=== PATIENT | female | born 1990 | race African-American/Black ===

== ENCOUNTER → 2017-07-12 | Emergency (ER) | payer OTHER ==
[~2017-07-12] VITALS: Ht 180.3 cm; Wt 124.7 kg
[~2017-07-12] MED LIST: LEVSIN/SL0.125 MG SL; MOTRIN800 MG PO; OMEPRAZOLE40 MG PO; PROTONIX20 MG; SALINE NASAL SP45 ML NS; VISTARIL50 MG; ZANTAC300 MG PO; ZITHROMAX TRI-500 MG PO
== END | disposition home or self-care (01) ==
LOC: ER 22:02
DX: R00.2 Palpitations (principal); F41.8 Other specified anxiety disorders

== ENCOUNTER → 2019-02-02 | Outpatient (CLI) | payer OTHER | END | disposition home or self-care (01) | LOC: PRENATAL 09:17 | DX: O99.212 Obesity complicating pregnancy, second trimester (principal); O99.012 Anemia complicating pregnancy, second trimester; O35.3XX1 Maternal care for (suspected) damage to fetus from viral disease in mother, fetus 1 ==

== ENCOUNTER 2019-03-20 19:10 | Emergency (ER) | payer OTHER ==
[~2019-03-20] VITALS: Ht 162.6 cm; Wt 123.8 kg
[2019-03-20] MEDS ORDERED: PRENATABS RX T1 EACH (19:24)
== END 2019-03-20 21:37 | disposition home or self-care (01) ==
LOC: ER 19:10
DX: G89.11 Acute pain due to trauma (principal); M25.512 Pain in left shoulder

== ENCOUNTER → 2019-04-15 | Outpatient (CLI) | payer OTHER ==
[~2019-04-15] MED LIST changes: +PRENATABS RX T1 EACH
== END | disposition home or self-care (01) ==
LOC: PRENATAL 04-08 08:30
DX: O26.849 Uterine size-date discrepancy, unspecified trimester (principal); O99.210 Obesity complicating pregnancy, unspecified trimester; Z3A.30 30 weeks gestation of pregnancy; O99.019 Anemia complicating pregnancy, unspecified trimester; O99.343 Other mental disorders complicating pregnancy, third trimester

== ENCOUNTER 2019-05-18 15:15 | Inpatient (IN) | payer OTHER ==
[~2019-05-18] VITALS: Ht 162.6 cm; Wt 125.2 kg
[2019-06-18] MEDS ORDERED: IRON325 MG PO (05:56)
[2019-06-18] MEDS ORDERED: ASPIR 8181 MG PO (05:56)
[2019-06-20] MEDS ORDERED: IRON325 MG PO (14:18)
[2019-06-20] MEDS ORDERED: ACETAMINOPHEN325 M1 PO (14:18)
== END 2019-06-20 14:49 | disposition home or self-care (01) | DRG 807 ==
LOC: OB/GYN 06-18 05:12 → LDR 06-18 05:12 → OB/GYN 06-18 14:05
PROVIDERS: ADMIT Specialist
PROC: 10E0XZZ Delivery of Products of Conception, External Approach (ICD-10-PCS; principal; 2019-06-18)
PROC: 4A1HXFZ Monitoring of Products of Conception, Cardiac Rhythm, External Approach (ICD-10-PCS; 2019-06-18)
PROC: 3E033VJ Introduction of Other Hormone into Peripheral Vein, Percutaneous Approach (ICD-10-PCS; 2019-06-18)
DX: O13.4 Gestational [pregnancy-induced] hypertension without significant proteinuria, complicating childbirth (principal); Z37.0 Single live birth; O99.214 Obesity complicating childbirth; O69.81X0 Labor and delivery complicated by cord around neck, without compression, not applicable or unspecified; O70.0 First degree perineal laceration during delivery; Z3A.39 39 weeks gestation of pregnancy

== ENCOUNTER → 2019-05-18 | Outpatient (CLI) | payer OTHER | END | disposition home or self-care (01) | LOC: PRENATAL 05-14 13:00 | DX: O26.843 Uterine size-date discrepancy, third trimester (principal); O99.213 Obesity complicating pregnancy, third trimester; O99.013 Anemia complicating pregnancy, third trimester; O99.343 Other mental disorders complicating pregnancy, third trimester; O99.89 Other specified diseases and conditions complicating pregnancy, childbirth and the puerperium; O36.8130 Decreased fetal movements, third trimester, not applicable or unspecified ==

== ENCOUNTER 2021-01-23 15:46 | Inpatient (IN) | payer OTHER ==
[~2021-01-23] VITALS: Ht 162.6 cm; Wt 164.2 kg
[~2021-01-23 15:46] MED LIST changes: +ACETAMINOPHEN325 M1 PO; +ASPIR 8181 MG PO; +IRON325 MG PO
--- NOTE | 2021-01-23 16:11 | NUR ---
PACIENTE FEMENIAN, ALERTA Y ORIENTADA. REFIERE ESTAR EMBARAZADAS CON SEMANAS DESCONOCIDAS. REFIERE VERGARA ULTIMA MENSTRUACION FUE HACE 2 MESES. PACIENTE REFIERE DOLOR ABDOMINAL, ESPALDA BAJA Y PIERNAS EN OCASIONES INTERMITENTE. SE MIDE S/V. SE UBICA EN MANSOOR DE OBSERVACION.
--- NOTE | 2021-01-23 17:01 | NUR ---
SE REALIZAN ORDENES MEDICAS EN VERGARA TOTALIDAD. SE ORIENTA A PACIENTE SOBRE LAS MISMAS.
--- NOTE | 2021-01-23 19:17 | NUR ---
PEROSNAL DE SONOGRAFIA MARYORIE LE NOTIFICA A QUE AL MOMENTO DE ESTAR REALIZANDO EL SONOGRAMA,ESTA LA OBSERVA EN PROCESO DE PARTO,Y LE ES NOTIFICADO A SOBRE PTE,LEONCIO ORDENA SE TRASLADE A MANSOOR DE PARTOS,LO CUAL REALIZA RN GUERRA JUNTO A OFICIAL DE TRANSPORTE.DE MANERA INMEDIATA. PTE ALERTA Y ORIENTADA.
== END 2021-01-25 15:19 | disposition home or self-care (01) | DRG 807 ==
LOC: ER 15:46 → LDR 20:40 → OB/GYN 01-24 15:02 → LDR 01-24 15:06 → OB/GYN 01-24 16:41
PROVIDERS: ADMIT Specialist; ATTEND Specialist
PROC: 10E0XZZ Delivery of Products of Conception, External Approach (ICD-10-PCS; principal; 2021-01-23)
PROC: 0HQ9XZZ Repair Perineum Skin, External Approach (ICD-10-PCS; 2021-01-23)
PROC: 10907ZC Drainage of Amniotic Fluid, Therapeutic from Products of Conception, Via Natural or Artificial Opening (ICD-10-PCS; 2021-01-23)
PROC: 4A1HXFZ Monitoring of Products of Conception, Cardiac Rhythm, External Approach (ICD-10-PCS; 2021-01-23)
DX: O99.824 Streptococcus B carrier state complicating childbirth (principal); Z37.0 Single live birth; O70.0 First degree perineal laceration during delivery; Z3A.38 38 weeks gestation of pregnancy

== ENCOUNTER 2021-08-02 17:50 | Emergency (ER) | payer OTHER ==
[~2021-08-02] VITALS: Ht 162.6 cm; Wt 116.1 kg
== END 2021-08-02 20:31 | disposition home or self-care (01) ==
LOC: ER 17:50
DX: K21.9 Gastro-esophageal reflux disease without esophagitis (principal)

== ENCOUNTER 2024-08-10 02:51 | Inpatient (IN) | payer OTHER ==
[~2024-08-10] VITALS: Ht 162.6 cm; Wt 124.7 kg
--- NOTE | 2024-08-10 03:10 | NUR ---
paciente refiere hace 1 hora se le puso la josé manuel dura y comenzo con gases y eso la puso ansiosa cual comenzo a hiperventilacion. al momento del triage abdomen depresible al tacto y sin dolor y paciente hablando en oraciones completas
[2024-08-10] MEDS ORDERED: hydrOXYzine PAMOATE 50 MG CAPSULE PO ONE ×2 (03:26→03:30)
--- NOTE | 2024-08-10 03:29 | NUR ---
AL MOMENTO DEL TRIAGE PACIENTE TAMBIEN REFIERE QUE TIENE PALPITACIONES SE REALIZA EKG Y SE PRESENTA A DR. HARRINGTON. SE COLOCA EN K-7 CON MONITOR CARDIACO
[2024-08-10] MEDS ORDERED: LEVALBUTEROL HCL 0.63 MG/3 ML SOLUTION IH ONE (03:44)
[2024-08-10] MEDS ORDERED: METHYLPREDNISOLONE SOD SUCC 125 MG VIAL IV STA (03:50)
[2024-08-10] MEDS ORDERED: METHYLPREDNISOLONE SOD SUCC 125 MG VIAL ONE (03:52)
[2024-08-10] MEDS ORDERED: LEVALBUTEROL HCL 0.63 MG/3 ML SOLUTION IH SCH (04:00)
--- NOTE | 2024-08-10 04:13 | NUR ---
SE ORIENTY A PTE SOBRE TX MEDICO Y LA MISMA REFIERE ENTENDER. SE CANALIZA A PTE EN AMBOS BRAZOS CON ANGIO #20. SE RECOLECTAN MUESTRAS DE LAB Y SE ADMISNITRAN MEDICAMENTOS LEONORA ORDEN MEDICAS.
[2024-08-10 04:51] LABS: INR 1.02; PROTHROMBIN TIME 11.1 SECONDS (9.0-11.5)
[2024-08-10 04:57] LABS: BASO % 0.5 % (0.1-1.2); EOS # 0.21 (0.04-0.54); EOS % 1.6 % (0.7-7.0); LYMPH # 2.99 (1.18-3.74); LYMPH % 22.8 % (19.3-53.1); MEAN CORPUSCULAR HEMOGLOBIN 18.9 pg (25.6-32.2); MONO # 1.05 (0.24-0.82); NEUT # 8.73 (1.56-6.13); NEUT % 66.3 % (34.0-71.1); RED BLOOD COUNT 3.71 M/uL (3.93-5.22); RED CELL DISTRIBUTION WIDTH 18.9 % (11.6-14.4)
[2024-08-10 05:00] LABS: ALBUMIN 3.1 gm/dL (3.4-5.0); BILIRUBIN TOTAL 0.19 mg/dL (0.3-1.2); CALCIUM 8.3 mg/dL (8.5-10.1); GFR 12.98; GLOBULINA 5.2 G/DL (2.4-3.5); PLATELET COUNT 663 K/uL (163-369); POTASSIUM 3.95 mEq/L (3.5-5.1); TOTAL PROTEIN 8.3 gm/dL (6.4-8.2)
[2024-08-10 05:01] LABS: HEMATOCRIT 23.4 % (34.1-44.9)
[2024-08-10 05:04] LABS: CREATININE SERUM 4.02 mg/dL (0.55-1.02)
[2024-08-10 05:06] LABS: COVID-19 AG NEGATIVE (NEGATIVE)
[2024-08-10] MEDS ORDERED: NIFEDIPINE 10 MG CAPSULE PO STA (05:13)
[2024-08-10] MEDS ORDERED: NIFEDIPINE 10 MG CAPSULE PO ONE (05:19)
[2024-08-10 05:26] LABS: INFLUENZA A AG NEGATIVE (NEGATIVE)
[2024-08-10] MEDS ORDERED: FUROsemide 20 MG/2 ML VIAL ONE ×2 (06:04→19:03)
[2024-08-10] MEDS ORDERED: FUROsemide 20 MG/2 ML VIAL IV STA (06:06)
[2024-08-10 06:20] LABS: ABG pCO2 31.5 mmHg (35-45)
[2024-08-10 06:21] LABS: ABG PO2 53.3 mmHg (80-100); BASE EXCESS -4.5 mmol/l; BICARBONATE 19.1 mmol/l (23-25); SaO2 86.8 %; Tco2 20.1 mmol/l; allen test SATISFACTORY; mode ROOM AIR; o2 21 %; puncture site RADIAL RIGHT
[2024-08-10] MEDS ORDERED: CEFTRIAXONE SODIUM 1,000 MG VIAL IV STA (08:14)
[2024-08-10] MEDS ORDERED: NITROGLYCERIN IN 5 % DEXTROSE 50 MG/250 ML BOTTLE IV ONE (08:21)
[2024-08-10] MEDS ORDERED: CEFTRIAXONE SODIUM 1,000 MG VIAL ONE (08:21)
[2024-08-10] MEDS ORDERED: NITROGLYCERIN IN 5 % DEXTROSE 250 ML IV SCH ×2 (08:45→09:00)
--- NOTE | 2024-08-10 15:25 | NUR ---
SE RECIBE PACIENTE ALERTA Y ORIENTADA X3 EN AREA DE CHEST PAIN EN CARLENE #18 EN POSICION SEMI SENTRADA, CON BARANDAS ELEVADAS. AL MOMENTO PACIENTE SE ENCUNETRA CONECTADA A MONITOR CARDIACO Y OXIMETRIA DE PULSO CONTINUA, SE OBSERVA CON VENTURY MASK AL 50%. SE OBSERVA PACIENTE CANALIZADA CON ANGIOS #20 EN BRAZO DERECHO CON IVF DE TRIDIL 50MG/250ML Y #20 EN BRAZO JR EN SALIN LOCK. AL MOMENTO PACIENTE EN ESPERA DE CONSULTA PARA EVALUACION.
[2024-08-10] MEDS ORDERED: FUROsemide 20 MG/2 ML VIAL IV SCH ×2 (18:18→18:30)
[2024-08-10] MEDS ORDERED: IPRATROPIUM BROMIDE 0.5 MG/2.5 ML AMPUL.NEB IH SCH (18:25)
[2024-08-10] MEDS ORDERED: ACETAMINOPHEN 500 MG GEL..CAP PO PRN (18:30)
[2024-08-10 19:00] VITALS: BP 173/91; O2SAT 100
[2024-08-10 20:00] VITALS: BP 177/93; O2SAT 100
[2024-08-10] MEDS ORDERED: IPRATROPIUM BROMIDE 0.5 MG/2.5 ML AMPUL.NEB IH ONE (20:37)
[2024-08-10 20:40] LABS: ABG PH 7.377 (7.35-7.45); ABG PO2 154.5 mmHg (80-100); ABG pCO2 33.8 mmHg (35-45); BASE EXCESS -4.8 mmol/l; BICARBONATE 19.4 mmol/l (23-25); SaO2 99.3 %; Tco2 20.4 mmol/l
[2024-08-10 21:00] VITALS: BP 163/92; O2SAT 100
[2024-08-10 21:02] LABS: PH,URINE 7.5 (5.0-8.0); URINE APPEARANCE Clear; URINE BILIRRUBIN Negative (NEGATIVE); URINE BLOOD Negative; URINE COLOR Yellow; URINE GLUCOSE Negative (NEGATIVE); URINE KETONE Negative (NEGATIVE); URINE LEUKOCYTE Small; URINE NITRATE Negative; URINE UROBILINOGEN 0.2 E.U./dl
[2024-08-10 21:06] LABS: URINE BACTERIA 346.3 uL (0.0-1933); URINE EPITHELIAL CELLS 12.5 uL (0.0-38.8); URINE RBC 64.2 uL (0.0-20.8); URINE WBC 132.9 uL (0.0-23.2)
[2024-08-10 21:24] LABS: URINE CAST 0.58 uL (0.0-1.40); URINE PROTEIN 300 (NEGATIVE)
[2024-08-10 21:56] VITALS: BP 163/91
[2024-08-10 22:00] VITALS: BP 170/92; O2SAT 100
[2024-08-10 23:24] LABS: allen test SATISFACTORY; mode VENTURY MASK; o2 50 %; puncture site RADIAL RIGHT
[2024-08-10 23:49] VITALS: BP 149/90; O2SAT 100
[2024-08-11] VITALS (13 sets, daily range): BP systolic 128–182; BP diastolic 68–96; O2SAT 97–100
[2024-08-11] MEDS ORDERED: IPRATROPIUM BROMIDE 0.5 MG/2.5 ML AMPUL.NEB IH ONE ×2 (00:57→09:50)
[2024-08-11] MEDS ORDERED: FUROsemide 20 MG/2 ML VIAL ONE (05:18)
[2024-08-11 07:41] LABS: CHOL HDL RATIO 2.3 (0-5.0); TSH 1.73 uIU/mL (0.358-3.74)
[2024-08-11] MEDS ORDERED: FAMOTIDINE/PF 20 MG in 0.9 % SODIUM CHLORIDE 8 ML IV PUSH SCH (09:00)
[2024-08-11] MEDS ORDERED: LOSARTAN/HYDROCHLOROTHIAZIDE 1 TAB TABLET PO SCH (09:00)
[2024-08-11] MEDS ORDERED: FUROsemide 20 MG/2 ML VIAL IV SCH (09:00)
[2024-08-12] VITALS (21 sets, daily range): BP systolic 132–166; BP diastolic 71–100; O2SAT 96–100
[2024-08-12] MEDS ORDERED: IPRATROPIUM BROMIDE 0.5 MG/2.5 ML AMPUL.NEB IH ONE (01:10)
[2024-08-12] MEDS ORDERED: hydrALAZINE HCL 20 MG VIAL IV PRN (12:00)
[2024-08-12] MEDS ORDERED: hydrALAZINE HCL 20 MG VIAL IV SCH (13:00)
[2024-08-13] VITALS (16 sets, daily range): BP systolic 106–165; BP diastolic 75–104; O2SAT 97–100
[2024-08-13 07:30] LABS: BASO % 0.3 % (0.1-1.2); EOS # 0.36 (0.04-0.54); EOS % 2.5 % (0.7-7.0); HEMATOCRIT 34.3 % (34.1-44.9); LYMPH # 2.79 (1.18-3.74); LYMPH % 19.2 % (19.3-53.1); NEUT # 9.94 (1.56-6.13); NEUT % 68.5 % (34.0-71.1); PLATELET COUNT 706 K/uL (163-369); RED BLOOD COUNT 5.01 M/uL (3.93-5.22)
[2024-08-13 07:33] LABS: RED CELL DISTRIBUTION WIDTH 22.8 % (11.6-14.4)
[2024-08-13 07:34] LABS: HEMOGLOBIN 10.5 g/dL (11.2-15.7)
[2024-08-13 08:09] LABS: ob NEGATIVE (NEGATIVE)
[2024-08-13 08:15] LABS: FERRITIN 20.7 NG/ML (8-252)
[2024-08-13 08:21] LABS: ALBUMIN 3.4 gm/dL (3.4-5.0); BILIRUBIN TOTAL 0.5 mg/dL (0.3-1.2); CALCIUM 9.1 mg/dL (8.5-10.1); GFR 11.52; GLOBULINA 4.3 G/DL (2.4-3.5); POTASSIUM 4.46 mEq/L (3.5-5.1); TOTAL PROTEIN 7.7 gm/dL (6.4-8.2)
[2024-08-13 08:50] LABS: CREATININE SERUM 4.46 mg/dL (0.55-1.02)
[2024-08-13 12:19] LABS: CREATININE URINE RANDOM 86.6 MG/DL (30-125)
[2024-08-13] MEDS ORDERED: AMLODIPINE BESYLATE 5 MG TABLET PO SCH (17:00)
[2024-08-13] MEDS ORDERED: CARVEDILOL 6.25 MG TABLET PO ONE (20:17)
[2024-08-13] MEDS ORDERED: CARVEDILOL 6.25 MG TABLET PO SCH (21:00)
[2024-08-14 00:03] VITALS: BP 121/72; O2SAT 96
[2024-08-14 07:22] LABS: BASO % 0.2 % (0.1-1.2); EOS # 0.36 (0.04-0.54); EOS % 2.1 % (0.7-7.0); HEMATOCRIT 36.9 % (34.1-44.9); HEMOGLOBIN 11.3 g/dL (11.2-15.7); LYMPH # 2.05 (1.18-3.74); LYMPH % 12.2 % (19.3-53.1); MEAN CORPUSCULAR HEMOGLOBIN 20.9 pg (25.6-32.2); MONO # 1.56 (0.24-0.82); MONO % 9.3 % (4.7-12.5); NEUT % 75.8 % (34.0-71.1); PLATELET COUNT 685 K/uL (163-369); RED BLOOD COUNT 5.41 M/uL (3.93-5.22); RED CELL DISTRIBUTION WIDTH 23.7 % (11.6-14.4)
[2024-08-14 07:57] VITALS: BP 130/75; O2SAT 97
[2024-08-14 08:23] LABS: ALBUMIN 3.3 gm/dL (3.4-5.0); BILIRUBIN TOTAL 0.37 mg/dL (0.3-1.2); CALCIUM 8.9 mg/dL (8.5-10.1); GFR 10.56; GLOBULINA 4.4 G/DL (2.4-3.5); POTASSIUM 4.37 mEq/L (3.5-5.1); TOTAL PROTEIN 7.7 gm/dL (6.4-8.2)
[2024-08-14 08:39] LABS: CREATININE SERUM 4.81 mg/dL (0.55-1.02)
[2024-08-14 13:08] LABS: a:g ratio 0.8 (0.7-1.7); alpha 1 g 0.3 g/dL (0.0-0.4); beta g 1.3 g/dL (0.7-1.3); gamma g 1.6 g/dL (0.4-1.8); globulin t 4.2 g/dL (2.2-3.9); m spike Not Observed g/dL (Not Observed); prot total 7.6 g/dL (6.0-8.5)
[2024-08-14 16:00] VITALS: BP 143/98; O2SAT 97
[2024-08-15 00:09] VITALS: BP 121/81; O2SAT 100
[2024-08-15 07:53] LABS: ALBUMIN 3.2 gm/dL (3.4-5.0); BILIRUBIN TOTAL 0.25 mg/dL (0.3-1.2); CALCIUM 8.8 mg/dL (8.5-10.1); GFR 8.82; GLOBULINA 4.1 G/DL (2.4-3.5); POTASSIUM 4.91 mEq/L (3.5-5.1); TOTAL PROTEIN 7.3 gm/dL (6.4-8.2)
[2024-08-15 08:00] VITALS: BP 110/70; O2SAT 97
[2024-08-15] MEDS ORDERED: FUROsemide 20 MG/2 ML VIAL IV SCH (09:00)
[2024-08-15 09:37] LABS: CREATININE SERUM 5.62 mg/dL (0.55-1.02)
[2024-08-15 15:55] VITALS: BP 130/85; O2SAT 99
[2024-08-15] MEDS ORDERED: CARVEDILOL 25 MG TABLET PO SCH (21:00)
[2024-08-16 01:41] VITALS: BP 104/64; O2SAT 100
[2024-08-16] MEDS ORDERED: LOSARTAN POTASSIUM 100 MG TABLET PO SCH (09:00)
[2024-08-16 13:32] VITALS: O2SAT 91
[2024-08-16 17:49] VITALS: BP 126/84; O2SAT 100
[2024-08-17 01:28] VITALS: BP 107/68; O2SAT 100
[2024-08-17 08:09] VITALS: BP 113/67; O2SAT 99
[2024-08-17 09:31] LABS: BASO % 0.3 % (0.1-1.2); EOS % 1.9 % (0.7-7.0); HEMATOCRIT 35.3 % (34.1-44.9); HEMOGLOBIN 10.7 g/dL (11.2-15.7); LYMPH # 2.84 (1.18-3.74); LYMPH % 27.3 % (19.3-53.1); MEAN CORPUSCULAR HEMOGLOBIN 20.8 pg (25.6-32.2); MONO # 1.31 (0.24-0.82); NEUT # 5.96 (1.56-6.13); NEUT % 57.4 % (34.0-71.1); PLATELET COUNT 585 K/uL (163-369); RED BLOOD COUNT 5.14 M/uL (3.93-5.22); RED CELL DISTRIBUTION WIDTH 24.8 % (11.6-14.4)
[2024-08-17 09:33] LABS: MONO % 12.6 % (4.7-12.5)
[2024-08-17 10:42] LABS: CALCIUM 8.8 mg/dL (8.5-10.1); GFR 5.94; POTASSIUM 5.09 mEq/L (3.5-5.1)
[2024-08-17 10:59] LABS: CREATININE SERUM 7.92 mg/dL (0.55-1.02)
[2024-08-17 15:49] VITALS: BP 120/82; O2SAT 100
[2024-08-18 01:09] VITALS: BP 110/70; O2SAT 100
[2024-08-18 08:05] VITALS: BP 90/61; O2SAT 96
[2024-08-18] MEDS ORDERED: DEXTROSE 5 % IN WATER 500 ML IV ONE (14:00)
[2024-08-18 16:35] VITALS: BP 106/73; O2SAT 98
[2024-08-19 01:02] VITALS: BP 112/56; O2SAT 100
[2024-08-19 07:19] LABS: CHOL HDL RATIO 3.2 (0-5.0)
[2024-08-19 08:14] VITALS: BP 112/82; O2SAT 96
[2024-08-19 13:57] LABS: CALCIUM 8.6 mg/dL (8.5-10.1); GFR 5.35; POTASSIUM 4.88 mEq/L (3.5-5.1)
[2024-08-19 14:18] LABS: CREATININE SERUM 8.67 mg/dL (0.55-1.02)
[2024-08-19 16:40] VITALS: BP 135/80; O2SAT 100
[2024-08-19] MEDS ORDERED: HEPARIN SODIUM,PORCINE/PF 100 UNIT/ML SYRINGE IV ONE (21:46)
[2024-08-20 03:45] VITALS: BP 107/62; O2SAT 98
[2024-08-20 08:00] VITALS: BP 110/73; BP 121/75; O2SAT 100; O2SAT 96
[2024-08-20 11:29] LABS: BASO % 0.3 % (0.1-1.2); EOS # 0.11 (0.04-0.54); EOS % 1.2 % (0.7-7.0); HEMOGLOBIN 10.3 g/dL (11.2-15.7); LYMPH # 1.97 (1.18-3.74); LYMPH % 20.9 % (19.3-53.1); MEAN CORPUSCULAR HEMOGLOBIN 21.5 pg (25.6-32.2); MONO # 0.72 (0.24-0.82); MONO % 7.6 % (4.7-12.5); NEUT # 6.58 (1.56-6.13); NEUT % 69.7 % (34.0-71.1); PLATELET COUNT 545 K/uL (163-369); RED BLOOD COUNT 4.78 M/uL (3.93-5.22)
[2024-08-20 11:38] LABS: RED CELL DISTRIBUTION WIDTH 25.1 % (11.6-14.4)
[2024-08-20 12:57] LABS: ALBUMIN 3.5 gm/dL (3.4-5.0); CALCIUM 8.9 mg/dL (8.5-10.1); POTASSIUM 5.24 mEq/L (3.5-5.1)
[2024-08-20 13:08] LABS: GFR 5.41; PHOSPHOROUS 8.3 mg/dL (2.5-4.9)
[2024-08-20 13:12] LABS: CREATININE SERUM 8.59 mg/dL (0.55-1.02)
[2024-08-20] MEDS ORDERED: TRAMADOL HCL 50 MG TABLET PO PRN (13:30)
[2024-08-20] MEDS ORDERED: TUBERCULIN,PURIF.PROT.DERIV. 10 SKIN.TEST SKIN.TEST ID NR (15:00)
[2024-08-20] MEDS ORDERED: HEPARIN SODIUM,PORCINE 5,000 UNITS/ML VIAL ONE (16:17)
[2024-08-21] VITALS: BP 139/79; O2SAT 100
[2024-08-21 09:32] LABS: ALBUMIN 3.3 gm/dL (3.4-5.0); BILIRUBIN TOTAL 0.32 mg/dL (0.3-1.2); CALCIUM 8.7 mg/dL (8.5-10.1); GFR 8.23; GLOBULINA 4.1 G/DL (2.4-3.5); PHOSPHOROUS 7.4 mg/dL (2.5-4.9); POTASSIUM 4.47 mEq/L (3.5-5.1); TOTAL PROTEIN 7.4 gm/dL (6.4-8.2)
[2024-08-21 09:34] LABS: CREATININE SERUM 5.97 mg/dL (0.55-1.02)
[2024-08-21 12:43] VITALS: BP 113/75; O2SAT 99
[2024-08-21 14:31] LABS: COVID-19 AG NEGATIVE (NEGATIVE)
[2024-08-21 14:46] LABS: ABG PH 7.397 (7.35-7.45); ABG PO2 90.3 mmHg (80-100); ABG pCO2 35.2 mmHg (35-45); BICARBONATE 21.1 mmol/l (23-25); SaO2 96.8 %; Tco2 22.2 mmol/l; allen test SATISFACTORY; mode ROOM AIR; o2 21 %; puncture site RADIAL LEFT
[2024-08-21 16:52] VITALS: O2SAT 95
[2024-08-21 17:51] VITALS: BP 125/87; O2SAT 95
[2024-08-22 02:52] VITALS: BP 107/63; O2SAT 97
[2024-08-22 07:56] VITALS: BP 106/72
[2024-08-22] MEDS ORDERED: HEPARIN SODIUM,PORCINE 5,000 UNITS/ML VIAL IV STA (17:38)
[2024-08-22 18:10] VITALS: BP 141/83; O2SAT 95
[2024-08-22 22:49] VITALS: BP 124/79
[2024-08-23 01:37] VITALS: BP 97/67; O2SAT 98
[2024-08-23 08:56] VITALS: BP 129/69
== END 2024-08-23 11:27 | disposition home or self-care (01) | DRG 291 ==
LOC: ER 02:51 → ICU-2 20:07 → SURG 20:07 → ICU 08-12 01:24 → SURG 08-13 17:54 → SURH 08-20 08:03 → MEDJ 08-21 10:23
PROVIDERS: General Practice; Internal Medicine; Internal Medicine Nephrology; ADMIT Student in an Organized Health Care Education/Training Program; ATTEND Student in an Organized Health Care Education/Training Program
PROC: BW24ZZZ Computerized Tomography (CT Scan) of Chest and Abdomen (ICD-10-PCS; 2024-08-10)
PROC: BW21ZZZ Computerized Tomography (CT Scan) of Abdomen and Pelvis (ICD-10-PCS; 2024-08-10)
PROC: B24BZZZ Ultrasonography of Heart with Aorta (ICD-10-PCS; 2024-08-10)
PROC: 30233N1 Transfusion of Nonautologous Red Blood Cells into Peripheral Vein, Percutaneous Approach (ICD-10-PCS; 2024-08-11)
PROC: BT43ZZZ Ultrasonography of Bilateral Kidneys (ICD-10-PCS; 2024-08-12)
PROC: 4A12X4Z Monitoring of Cardiac Electrical Activity, External Approach (ICD-10-PCS; 2024-08-13)
PROC: 05HM33Z Insertion of Infusion Device into Right Internal Jugular Vein, Percutaneous Approach (ICD-10-PCS; principal; 2024-08-20)
PROC: B513YZA Fluoroscopy of Right Jugular Veins using Other Contrast, Guidance (ICD-10-PCS; 2024-08-20)
PROC: B543ZZA Ultrasonography of Right Jugular Veins, Guidance (ICD-10-PCS; 2024-08-20)
PROC: 5A1D70Z Performance of Urinary Filtration, Intermittent, Less than 6 Hours Per Day (ICD-10-PCS; 2024-08-20)
PROC: 5A1D70Z Performance of Urinary Filtration, Intermittent, Less than 6 Hours Per Day (ICD-10-PCS; 2024-08-22)
DX: I13.2 Hypertensive heart and chronic kidney disease with heart failure and with stage 5 chronic kidney disease, or end stage renal disease (principal); N18.6 End stage renal disease; N17.9 Acute kidney failure, unspecified; I50.20 Unspecified systolic (congestive) heart failure; I43 Cardiomyopathy in diseases classified elsewhere; E66.01 Morbid (severe) obesity due to excess calories; R09.02 Hypoxemia; D63.1 Anemia in chronic kidney disease